=== PATIENT | female | born 1965 | race Caucasian/White ===

== ENCOUNTER 2017-01-21 02:00 | Inpatient (IN) | payer OTHER ==
[~2017-01-21] VITALS: Ht 160 cm; Wt 90.7 kg
[~2017-01-21 02:00] MED LIST: ASPIRIN EC81 M1 PO; ATENOLOL50 M1 PO; CRESTOR5 M1 PO; FOLIC ACID1 M1 PO; HYDROCHLOROTHIA25 M1 PO; LOSARTAN POTASS50 M1 PO
--- NOTE | 2017-01-21 07:11 | Operative Report ---
Operative/Inv Procedure Report Surgery Date: 01/21/17 Name of Procedure: 1. C4/5, C6/7 ACDF with Synthes PEEK interbody cages, autograft, allograft, anterior Vectra plate and screws 2. Exploration of prior C5/6 ACDF Pre-Operative Diagnosis: C4/5 HNP, C6/7 unstable spondylolisthesis s/p previous C5/6 ACDF Post-Operative Diagnosis: same Estimated Blood Loss: less than 50ml Surgeon/Boiler Tenders Supervisor: JAMEE GARCIA,STARLA Pimentel MD Anesthesia: general endotracheal tube Monitors: neurophysiologic monitoring IV Fluids: replaced with crystalloid Implants: synthes Urine Output: via arias Drains: small DONATO Specimens: C4/5, C6/7 disc material Complications: none Condition: stable Operative Indication: Pt is a 51yo women s/p prior C5/6 ACDF now with progressive left central HNP at C4/5 and C6/7 facet arthrosis with unstable spondylolisthesis who presents for surgical decompression and fusion after failed conservative treatment. Operative/Procedure Note Note: Patient was taken to the operating room. After appropriate patient identification, neurophysiologic monitoring leads were placed and baseline recordings were obtained. Patient underwent smooth induction of general endotracheal anesthesia without complication. Arias catheter was sterilely inserted. DVT prophylaxis utilized throughout the case. Patient given 2 g IV Preoperative Prophylaxis. He Was Positioned Supine on the Operating Table with the Neck Slightly Extended on a Donut and Shoulders Retracted Downward with Tape. The left Ventral Neck Widely Prepped and Draped Usual Sterile Fashion Using Probe Iodine Solution. Prior surgery was done via the right neck and preop laryngoscopy showed bilat mobile vocal cords. A skin incision made at each level with a 10 blade knife. Dissection was carried down through the subcutaneous tissue with the Bovie to the platysma which was undermined elevated and divided. Subplatysmal planes were created rostrally and caudally. Medial sternal cleidomastoid muscle was identified in the overlying fascia incised. A combination of digital and blunt dissection was used medial to the sternal cleidomastoid and lateral to the trachea and esophagus down to the prevertebral fascia. Scar from his previous ACDF was encountered increasing the complexity of the dissection. The prevertebral Fascia was incised with the Bovie and swept off the ventral vertebral bodies with a peanut. Disc spaces were identified above and below the previous surgical level. A small gauge spinal needle was placed superficially in each interspace and a lateral fluoroscopic x-ray obtained and confirmed this to be C4/5 and C6/7. The longus coli muscle was reflected bilaterally and self- retaining retractors were placed beneath the muscle. The previous surgical fusion at C5/6 was explored and noted to be solid with intact instrumentation. An annulotomy was made with a 15 blade knife at C4/5. Chign[place] pins placed in the C4 and C5 vertebral body of the disc space gently distracted. A complete discectomy was performed using combination of the drill, straight and angled curettes and pituitary rongeurs. Kerrison rongeurs were used to resect to the endplate osteophytes. Posterior longitudinal ligament was elevated and sequentially resected with the Kerrisons and an excellent decompression of the underlying dural sac and nerve roots. The disc space was irrigated and hemostasis ensured before placement of the cage. With the decompression completed, the cartilaginous endplates were stripped and the endplates were prepared for arthrodesis. A 7mm PEEK cage was selected after trials, filled with morcellated autograft from the osteophytectomy and DBM, and gently tamped into the interspace under direct and fluoroscopic guidance and countersunk by approximately 1-2 mm. Chignik pins were removed in a small amount of bone bleeding easily controlled with bone wax. The ventral aspect the C4 and 5 were contoured with the drill to facilitate placement of the anterior plate. A 12mm vectra plate was selected and provisionally placed. The plate was fixed to the C4, C5 vertebral bodies with a series of 16mm screws, piercing the cortex withg an awl and placing self drilling self tapping screws. All screws were finally tightened deployinbg the locking mechanism at all 4 locations. We then focusd our attention to C6/7 and in an analogous fashion, Chignik pin replaced at this level and the interspace gently distracted. A discectomy was completed and the PLL subtotally resected with excellent decompression. With the decompression completed, the cartilaginous endplates were stripped and the endplates of C6 and C7 decorticated for arthrodesis. After appropriate trials, a second 7 mm Synthes axis PEEK cage was selected. It was filled with morcellated autograft from the osteophytectomy and DBM and gently tamped into the interspace under direct and fluoroscopic guidance and countersunk by approximately 1-2 mm. Chignik pins were removed and a small amount of bone bleeding easily controlled with bone wax. The ventral aspect the C6 and 7 were contoured with the drill to facilitate placement of the anterior plate. A 14mm vectra plate was selected and provisionally placed. The plate was fixed to the C6 and C7 vertebral bodies with a series of 16mm screws, piercing the cortex withg an awl and placing self drilling self tapping screws. All screws were finally tightened deployinbg the locking mechanism at all 4 locations. Final AP and lateral x-rays were obtained and saved and showed excellent position of the instrumentation. Meticulous hemostasis was achieved. The wound was copiously irrigated. A medium DONATO drain placed into the wound and secured to the skin with a 2-0 nylon suture. Neurophysiologic monitoring was stable throughout the case and wound closure begun. Platysma was reapproximated with interrupted 2-0 Vicryl suture. The skin was closed in layers with interrupted 2-0 Vicryl suture in the dermis and a running 4-0 Vicryl subcuticular stitch in the skin. The wounds clean and dry. Steri- Strips and a sterile occlusive dressing was placed. Discharge Disposition: PACU
[2017-01-21] MEDS ORDERED: PRILOSEC OTC20 M1 PO (09:22)
[2017-01-21] MEDS ORDERED: MULTI-DAY VITA1 EACH PO (09:23)
[2017-01-21] MEDS ORDERED: VITAMIN B-121000 MC3 PO (09:24)
[2017-01-21] MEDS ORDERED: VITAMIN B-6100 M1 (09:25)
--- NOTE | 2017-01-21 13:28 | Operative Report ---
Operative/Inv Procedure Report Surgery Date: 01/21/17 Name of Procedure: C4 5 ACDF C6 7 ACDF exploration of fusion at C5 6. Use of Synthes anterior plating system 2, use of intervertebral biomechanical device 2, use of autograft use of allograft, use of fluoroscopic guidance Pre-Operative Diagnosis: Cervical spondylosis Post-Operative Diagnosis: Same Estimated Blood Loss: less than 50ml Surgeon/Learn To Sw[employer] Instructor: JAMEE Pereira MD,STARLA Brunner Anesthesia: general endotracheal tube Operative/Procedure Note Note: After the successful administration of general endotracheal anesthesia all lines tubes and monitors were placed by the anesthesia team the patient positioned supine with the head gently extended we used the fluoroscope to plan the skin incision in the left anterior neck. The patient was then prepped and draped in usual standard fashion #15 blade was used to open left anterior neck. We then exposed the C4 5 5 6 and C6 7 levels by dissecting through the soft tissues medialized the tracheostomy esophagus and lateralizing the carotid artery. We confirm level of the fluoroscopic shot. We then elevated longus coli bilaterally, and inserted soft tissue retractors. We confirmed levels using bayoneted spinal needles, placed Coarsegold pins the bodies of C4 and C5 provided gentle in-line distraction used a 15 blade to incise the disc and perform a thorough discectomy using accommodation pituitaries curettes and Kerrison punches. Osteophytes and bony endplates were Kerrisoned and drilled down and saved for autograft. We elevated the PLL and resected using Kerrison punches, after was satisfied with the bony ligamentous and disc decompression we trialed a 7 mm spacer this the appropriate size was prepacked with morselized autograft and allograft inserted. The Coarsegold pins removed, and a 12 mm plate was secured in place using 16 mm screws, placed under fluoroscopic guidance. We then turned attention C6 7 disc space the steps were repeated, again a 7 mm spacer was appropriate size this time we used a 14 mm plate secured in place with 4.0 x 16 mm screws except for the right C7 screw the stenotic good purchase we salvaged with a 4.5 mm rescue screw. All screws were locked in place the integrated locking mechanism, bleeding was to minimum. The C5 6 level solid arthrodesis was confirmed visually and under fluoroscopic guidance. We then copiously irrigated the wounds, through separate stab incision placed a DONATO drain. The wound was then closed in layers a dry sterile dressing was applied and the case all needle counts sponge and instruments were correct, motors and sensors were stable and the patient was taken to recovery in stable condition.
[2017-01-21 16:10] VITALS: BP 130/86
--- NOTE | 2017-01-21 16:25 | Admission Core Measures ---
Admission Meds I reviewed the following Meds: Current Medications Sig/Robin Start time Last Medication Dose Stop Time Status Admin Acetaminophen 650 MG Q4P PRN 01/21 1445 AC (Tylenol) Bisacodyl 10 MG DAILY PRN 01/21 1500 AC (Dulcolax Supp) Cefazolin Sodium 2 GM Q8H 01/21 1925 AC (Kefzol) 01/22 0354 N/A 1 UNIT (No Carrier) Cefazolin Sodium 2,000 MG ONCE 01/21 0000 NR (Kefzol-Ancef Inj) 01/21 2359 Diazepam 5 MG Q8P PRN 01/21 1500 AC (Valium) Docusate Sodium 100 MG BID 01/21 2200 AC (Colace) Famotidine 20 MG BID 01/21 2200 AC (Pepcid) Heparin Sodium 5,000 UNIT Q8 01/22 0600 AC (Porcine) Hydromorphone HCl 1 MG Q4-6 PRN PRN 01/21 1500 AC (Dilaudid) Hydromorphone HCl 2 MG Q4-6 PRN PRN 01/21 1500 AC (Dilaudid) Ondansetron HCl 4 MG Q6P PRN 01/21 1445 AC (Zofran) Oxycodone/ 2 TAB Q4P PRN 01/21 1445 AC Acetaminophen (Percocet) Sodium Chloride 1,000 ML Q12H 01/21 1445 AC (Normal Saline 0.9%) 01/22 1444 Trimethobenzamide HCl 200 MG Q6P PRN 01/21 1445 AC (Tigan) Zolpidem Tartrate 2.5 MG AT BEDTIME NEED.. 01/21 1500 AC (Ambien) Acute Coronary Syndrome Inclusion Criteria ACS Diagnosis No Inpatient Core Measures LDL Reminder: If No, please order W/I first 24hr of stay Congestive Heart Failure Inclusion Criteria CHF Diagnosis No Cerebrovascular accident Inclusion Criteria CVA/TIA Diagnosis No Inpatient Core Measures Bedside Swallow Eval Reminder: If BSE failed, place ST order Antithrombotic Reminder: Order Antithrombotic Medication by end of day 2 Antithrombotic Reminder: Document Reason Antithrombotic Not ordered by end of day 2 AFIB/Flutter Reminder: If Present, add to problem list AFIB/Flutter Reminder: Order Anticoag Medication for pts with AFIB/Flutter Atherosclerosis Reminder: If Present, add to problem list LDL Reminder: If No, please order W/I first 24hr of stay PT Order Reminder: If No, please order Venous thromboembolism Inpatient Core Measures VTE Risk Factors: Age > 40, Surgery [facility] prophylaxis d/t No contraindications No VTE Pharm Prophylaxis d/t No contraindications Inclusion Criteria - Per Current guidelines, there needs to be overlap - treatment for the first 5 days of Warfarin therapy. - Parenteral Anticoagulation (IV or SC) needs to be - given along with Warfarin therapy. VTE Diagnosis No VTE Type NONE VTE Confirmed by (Test) NONE Problem List As ranked by this Provider includes Assessment & Plan 1. S/P cervical spinal fusion HOME MEDS Home Med List Aspirin (Ecotrin*) 81 MG TABLET.DR 1 TAB PO DAILY PROPHO (Reported) Atenolol 50 MG TABLET 1 TAB PO DAILY HTN (Reported) Cyanocobalamin (Vitamin B-12) 1,000 MCG TABLET 1 TAB PO DAILY SUPPLEMENT ( Reported) Folic Acid 1 MG TABLET 1 TAB PO DAILY PROPHO (Reported) Hydrochlorothiazide 25 MG TABLET 1 TAB PO DAILY HTN (Reported) Losartan Potassium 50 MG TABLET 1 TAB PO DAILY HTN (Reported) Multivitamin (Multi-Day Vitamins) 1 EACH TABLET 1 TAB PO DAILY SUPPLEMENT ( Reported) Omeprazole Magnesium (Prilosec Otc) 20 MG TABLET.DR 1 TAB PO DAILY ppi ( Reported) Rosuvastatin Calcium (Crestor) 5 MG TABLET 1 TAB PO DAILY CHOLESTEROL ( Reported)
--- NOTE | 2017-01-21 16:29 | PN- Neurosurgical ---
Subjective Subjective: poc s/p c4-7 cervical fusion comfortable deneis cp, sob, no n+v with ice chips Objective Vital Signs and I&Os stable Physical Exam: cv: rrr lungs: clear abd: soft, +bs ext: bilat ue grossly intact drsg dry c-collar in place paddy: minimal sanguinous draiange Assessment/Plan Assessment/Plan nuero stable plan c-collar at all times record paddy drainage qshift advance diet as tolerated titrate pain meds hep sq/alps for dvt prophylaxis Core Measures/Miscellaneous Venous Thromboembolism VTE Risk Factors: Age > 40, Surgery VTE Contraindications: No Contraindications VTE Diagnosis: No VTE Type: NONE VTE Confirmed by (Test): NONE Beta Stefan Is Beta Stefan a Home Med? Yes Antibiotics Is Patient on Antibiotics? Yes
[2017-01-21 18:28] VITALS: BP 124/90
--- NOTE | 2017-01-21 18:28 | NUR ---
NURSING NOTE; LATE ENTRY; PT ADMITTED TO AT 1610 FROM PACU, PT ALERT AND OREINTEDX3, ON 2LNC, DENIES CP, DENIES SOB, DENIES ANY DISCOMFORT, IVF RUNNING PER EMAR, NECK BRACE IN PLACE, DSG TO NECK C/D/I, DONATO DRAIN TO SUCTION, +CMS, ORIENTED TO ROOM AND CALL PITTMAN, SAFETY MAINTAINED, NEEDS WITHIN REACH
[2017-01-21 20:08] VITALS: BP 100/86
[2017-01-21 23:00] VITALS: BP 138/92
[2017-01-22 02:53] VITALS: BP 126/66
[2017-01-22 06:02] VITALS: BP 110/70
--- NOTE | 2017-01-22 07:09 | PN- Neurosurgical ---
Subjective Subjective: The patient was seen this morning postoperatively day #1. She reports that her pain is under adequate control and has no other complaints the current time. She denies any numbness, tingling, or weakness in her extremities. Objective Vital Signs and I&Os Vital Signs Date Time Temp Pulse Resp B/P B/P Pulse O2 O2 Flow FiO2 Mean Ox Delivery Rate 01/22 0602 97.6 72 19 110/70 97 Nasal 2.0L Cannula 01/22 0600 97 Nasal 1.0L Cannula 01/22 0253 98.0 78 18 126/66 98 Nasal Cannula 01/22 0000 Nasal 1.0L Cannula 01/21 2300 97.8 77 22 138/92 99 Nasal 2.0L Cannula 01/21 2200 97 Nasal 2.0L Cannula 01/22 2020 Nasal 2.0L Cannula 01/22 2008 97.7 73 19 100/86 97 01/21 1828 97.6 73 20 124/90 97 Nasal 2.0L Cannula 01/21 1610 Room Air 2.0L 01/21 1610 97.4 66 16 130/86 91 Nasal 2.0L Cannula 01/21 1610 91 Nasal 2.0L Cannula Intake & Output 01/22 0800 01/22 0000 01/21 1600 01/21 0800 01/21 0000 01/20 1600 Intake Total 1120 1540 Output Total 1160 625 Balance -40 915 Intake, IV 640 640 Intake, Oral 480 900 Output, 10 25 Drainage Output, Urine 1150 600 Patient 200 lb Weight Weight Reported by Patient Measurement Method Physical Exam: Gen.: Alert and in no obvious distress Skin: Warm and dry Neck: In a hard cervical collar, surgical dressing is clean, dry, and intact without signs of significant edema or hematoma. DONATO 1 holding suction with serosanguineous drainage in the bulb Extremities: Patient moves all 4 extremities with equal strength. Gross motor and sensory are intact. Bilateral lower extremities are warm without calf tenderness or significant edema. Assessment/Plan Assessment/Plan Assessment: 51-year-old female status post ACD fusion C4 through C7 postoperative day #1. The patient is progressing as expected and her pain is under adequate control. Plan: Out of bed ambulate with cervical collar in place GI and DVT prophylaxis Follow-up morning laboratory studies Continue current pain regiment Hep-Lock IV fluids Probable DC DONATO later this morning Possible discharge home later today Core Measures/Miscellaneous Venous Thromboembolism VTE Risk Factors: Age > 40, Surgery VTE Contraindications: No Contraindications VTE Diagnosis: No VTE Type: NONE VTE Confirmed by (Test): NONE Beta Stefan Is Beta Stefan a Home Med? Yes Antibiotics Is Patient on Antibiotics? No
[2017-01-22] MEDS ORDERED: PERCOCET 5-3251 EACH PO (07:11)
[2017-01-22] MEDS ORDERED: VALIUM5 M2 PO (07:11)
--- NOTE | 2017-01-22 07:15 | Patient Discharge Instructions ---
Discharge Instructions General Discharge Information You were seen/treated for: Unstable spondylolisthesis and history of prior fusion You had these procedures: ACD fusion C4-c7 Watch for these problems: With significantly increased pain, difficulty swallowing, or temperatures over 101 Increased redness or drainage from around incision Numbness, tingling, or weakness in extremities No bath, but you may shower: Yes Other wound care: Shower with occlusive dressing in place then remove dressing and replace with a dry dressing. Special Instructions: Continue using hard cervical collar until otherwise directed by your surgeon Diet Continue normal diet: Yes Activity Activity Self Limited: Yes Pounds, do NOT lift more than: 10 Other activity limits: Do not drive or operate heavy machinery until seen by your surgeon and off all pain medications Acute Coronary Syndrome Inclusion Criteria At DC or during hospital stay patient has or had the following: ACS DIAGNOSIS No Discharge Core Measures Meds if any: Prescribed or Continued at Discharge Meds if any: NOT Prescribed or Continued at Discharge Congestive Heart Failure Inclusion Criteria At DC or during hospital stay patient has or had the following: CHF DIAGNOSIS No Discharge Core Measures Meds if any: Prescribed or Continued at Discharge Meds if any: NOT Prescribed or Continued at Discharge Cerebrovascular accident Inclusion Criteria At DC or during hospital stay patient has or had the following: CVA/TIA Diagnosis No Discharge Core Measures Meds if any: Prescribed or Continued at Discharge Meds if any: NOT Prescribed or Continued at Discharge Venous thromboembolism Inclusion Criteria VTE Diagnosis No VTE Type NONE VTE Confirmed by (Test) NONE Discharge Core Measures - Per Current guidelines, there needs to be overlap - treatment for the first 5 days of Warfarin therapy. - If discharged on Warfarin prior to 5 days of - overlap therapy, the patient will need to be - assessed for post discharge needs including - *Post discharge parental anticoagulation - *Warfarin and/or parental anticoagulation education - *Follow up date to check INR post discharge At least 5 days overlap therapy as Inpatient No Meds if any: Prescribed or Continued at Discharge Note: Overlap Therapy is Warfarin and Anticoagulant Meds if any: NOT Prescribed or Continued at Discharge
--- NOTE | 2017-01-22 07:36 | PN- Neurosurgical ---
Subjective Subjective: Pt doing well. mild neck pain. Objective Vital Signs and I&Os Vital Signs Date Time Temp Pulse Resp B/P B/P Pulse O2 O2 Flow FiO2 Mean Ox Delivery Rate 01/22 0602 97.6 72 19 110/70 97 Nasal 2.0L Cannula 01/22 0600 97 Nasal 1.0L Cannula 01/22 0253 98.0 78 18 126/66 98 Nasal Cannula 01/22 0000 Nasal 1.0L Cannula 01/21 2300 97.8 77 22 138/92 99 Nasal 2.0L Cannula 01/21 2200 97 Nasal 2.0L Cannula 01/22 2020 Nasal 2.0L Cannula 01/22 2008 97.7 73 19 100/86 97 01/21 1828 97.6 73 20 124/90 97 Nasal 2.0L Cannula 01/21 1610 Room Air 2.0L 01/21 1610 97.4 66 16 130/86 91 Nasal 2.0L Cannula 01/21 1610 91 Nasal 2.0L Cannula Intake & Output 01/22 0800 01/22 0000 01/21 1600 01/21 0800 01/21 0000 01/20 1600 Intake Total 1120 1540 Output Total 1160 625 Balance -40 915 Intake, IV 640 640 Intake, Oral 480 900 Output, 10 25 Drainage Output, Urine 1150 600 Patient 90.718 kg Weight Weight Reported by Patient Measurement Method Physical Exam: AF, VSS DONATO with min output ON, neck soft neuro intact voice clear, santana clears, ambulating voiding on own Current Medications: Current Medications Sig/Robin Start time Last Medication Dose Route Stop Time Status Admin Acetaminophen 650 MG Q4P PRN 01/21 1445 AC PO Acetaminophen 1,000 MG .STK-MED ONE 01/21 1006 DC IV 01/21 1007 Alprazolam 0.5 MG .STK-MED ONE 01/21 0951 DC PO 01/21 0952 Atenolol 50 MG DAILY 01/22 1000 AC PO Atorvastatin Calcium 20 MG 1700 01/21 1700 AC PO Bisacodyl 10 MG DAILY PRN 01/21 1500 AC WV Cefazolin Sodium 2 GM Q8H 01/21 1925 DC 01/22 N/A 1 UNIT IV 01/22 0354 0303 Cefazolin Sodium 2,000 MG ONCE 01/21 0000 DC IV 01/21 2359 Diazepam 5 MG Q8P PRN 01/21 1500 AC 01/22 PO 0201 Docusate Sodium 100 MG BID 01/21 2200 AC 01/21 PO 2208 Famotidine 20 MG BID 01/21 2200 AC 01/21 PO 2208 Fentanyl Citrate 250 MCG .STK-MED ONE 01/21 1005 DC IM 01/21 1006 Heparin Sodium 5,000 UNIT Q8 01/22 0600 AC 01/22 (Porcine) SC 0458 Hydrochlorothiazide 25 MG DAILY 01/22 1000 AC PO Hydromorphone HCl 1 MG Q4-6 PRN PRN 01/21 1500 AC 01/21 IV 1920 Hydromorphone HCl 2 MG Q4-6 PRN PRN 01/21 1500 AC IV Lorazepam 0.5 MG AT BEDTIME PRN 01/21 2245 AC 01/21 PO 01/28 224 2247 Losartan Potassium 50 MG DAILY 01/22 1000 AC PO Midazolam HCl 2 MG .STK-MED ONE 01/21 1006 DC IM 01/21 1007 Omeprazole 20 MG DAILY AC 01/22 0700 AC 01/22 PO 0459 Ondansetron HCl 4 MG Q6P PRN 01/21 1445 AC IV Oxycodone/ 2 TAB Q4P PRN 01/21 1445 AC 01/22 Acetaminophen PO 0459 Remifentanil 3 MG .STK-MED ONE 01/21 1006 DC IV 01/21 1007 Sodium Chloride 1,000 ML Q12H 01/21 1445 AC 01/22 IV 01/22 1444 0201 Trimethobenzamide HCl 200 MG Q6P PRN 01/21 1445 AC IM Zolpidem Tartrate 2.5 MG AT BEDTIME NEED.. 01/21 1500 DC PO Assessment/Plan Assessment/Plan Pt POD1 s/p C4/5, C6/7 ACDF and doing well. Neurologically intact. Plan: -dc DONATO, abx -soft mechanical diet -home later today -dc instructions given -fu 2 weeks Core Measures/Miscellaneous Venous Thromboembolism VTE Risk Factors: Age > 40, Surgery VTE Contraindications: No Contraindications VTE Diagnosis: No VTE Type: NONE VTE Confirmed by (Test): NONE Beta Stefan Is Beta Stefan a Home Med? Yes Antibiotics Is Patient on Antibiotics? No Attending MD Review Statement Attending Statement Attending MD Statement: examined this patient, discuss w/resident/PA/[employer], discussed w/nursing
--- NOTE | 2017-01-22 07:44 | Surg Short-stay <48hrs Dis Sum ---
Visit Information Visit Dates Admission Date: 01/21/17 Discharge Date: 01/22/17 Surgical Short Stay DC Summary Admission Diagnosis: Spondylolisthesis and loosening of prior fusion C4 through 7 Final Diagnosis: Same Procedure(s): ACD fusion C4 through C7 Summary/Significant Findings: The patient was admitted on 01/21/2017. She was brought to the operating theater where she underwent an before meals fusion C4 through 7. Postoperative the patient progressed as expected, her pain was under adequate control, and she has a nonfocal neuro exam. The patient was discharged with a uneventful hospital course. Condition at Discharge: Stable Discharge Disposition: home or self care Discharge instructions provided to patient/family: Yes Post discharge follow-up plan: Call the office to be seen in 2 weeks
[2017-01-22 10:00] VITALS: BP 122/80
[2017-01-22 10:26] VITALS: BP 122/80
--- NOTE | 2017-01-22 16:21 | RADIOLOGY REPORT ---
EXAMINATION: XR CERVICAL SPINE CLINICAL INFORMATION: Anterior spinal decompression with fusion in OR C4-C5, C6-C7. COMPARISON: None TECHNIQUE/FINDINGS: Fluoroscopic equipment was dedicated to the operating room for the performance of an anterior cervical spine decompression and fusion. 2 spot films were acquired and are archived in PACS. Anterior cervical fusion plates with intervertebral disc spacers are seen at the C4-C5, C5-C6, and C6-C7 levels. Alignment on the images submitted is anatomic. Bone detail is limited. FLUOROSCOPY TIME: 0.1 minutes. IMPRESSION: Administrative dictation for anterior spinal decompression with fusion in the cervical spine.
== END 2017-01-22 13:23 | DRG 473 ==
LOC: SDA 02:00 → ENRESERV 14:12 → ENTRNSPT 15:51 → 2NB 16:08 → CMPTRNSPT 16:15 → ENPENDDIS 01-22 07:57 → 2NB 01-22 13:23
PROVIDERS: ADMIT Neurological Surgery
PROC: 0RJ10ZZ Inspection of Cervical Vertebral Joint, Open Approach (ICD-10-PCS; principal; 2017-01-21)
PROC: 0RG20A0 Fusion of 2 or more Cervical Vertebral Joints with Interbody Fusion Device, Anterior Approach, Anterior Column, Open Approach (ICD-10-PCS; principal; 2017-01-21)
PROC: 4A11X4G Monitoring of Peripheral Nervous Electrical Activity, Intraoperative, External Approach (ICD-10-PCS; principal; 2017-01-21)
PROC: 0RT30ZZ Resection of Cervical Vertebral Disc, Open Approach (ICD-10-PCS; principal; 2017-01-21)
DX: M50.221 Other cervical disc displacement at C4-C5 level (principal); I10 Essential (primary) hypertension; M43.12 Spondylolisthesis, cervical region; E04.1 Nontoxic single thyroid nodule; Z98.1 Arthrodesis status; Z87.891 Personal history of nicotine dependence
CPT/HCPCS: 2NBSP; 36415; 72020; C1713; J0131; J0690; J1644; J2405; J3250